=== PATIENT | female | born 1960 | race Caucasian/White ===

== ENCOUNTER 2018-05-04 12:54 | Emergency (ER) | payer OTHER ==
[~2018-05-04] VITALS: Ht 170.2 cm; Wt 158.8 kg
[~2018-05-04 12:54] MED LIST: ALBUTEROL2.5 MG/31 INH; PROMETHAZINE V473 ML PO; TESSALON PERLE100 MG PO; ZPAK PO
[2018-05-04] MEDS ORDERED: XANAX1 MG PO (13:03)
[2018-05-04] MEDS ORDERED: ESTRADIOL 1 MG T1 M1 PO (13:04)
[2018-05-04 13:13] LABS: ABSOLUTE EOSINOPHILS 0.1 thou/uL (0.0-0.7); ABSOLUTE LYMPHOCYTES 2.1 thou/uL (0.8-5.3); ABSOLUTE MONOCYTES 0.5 thou/uL (0.0-1.2); ABSOLUTE NEUTROPHILS 4.4 thou/uL (1.6-8.1); BASOPHILS 0.6 %; EOSINOPHILS 1.5 %; HEMATOCRIT 40.7 % (37.0-47.0); HEMOGLOBIN 13.6 gm/dL (12.0-15.0); LYMPHOCYTES 28.9 %; MCH 28.9 pg (26.0-34.0); MCHC 33.4 g/dL (28.0-37.0); MCV 86.3 fL (80.0-100.0); MONOCYTES 6.8 %; MPV 7.4 fl. (7.2-11.1); NUCLEATED RBCS 0 /100WBC; PLATELET COUNT* 247 thou/uL (150-400); POLYS 62.2 %; RBC 4.72 mil/uL (4.20-5.00); RDW-CV 14.4 % (10.5-14.5); WBC 7.1 thou/uL (4.0-11.0)
[2018-05-04 13:23] LABS: APTT 24.9 Seconds (25.0-31.3); INR 1.1; PROTIME 10.5 Seconds (9.20-11.50)
[2018-05-04 13:24] LABS: ANION GAP 8 mmol/L (7-16); BUN 9 mg/dL (7-18); CALCIUM 9.1 mg/dL (8.5-10.1); CHLORIDE 105 mmol/L (98-107); CO2 28 mmol/L (21-32); CREATININE 0.9 mg/dL (0.6-1.3); GLUCOSE 101 mg/dL (70-99); POTASSIUM 3.5 mmol/L (3.5-5.1); SODIUM 141 mmol/L (136-145)
[2018-05-04 13:40] LABS: ALBUMIN 3.3 g/dL (3.4-5.0); ALKALINE PHOSPHATASE 89 U/L (46-116); CK-MB MASS < 0.5 ng/mL (<0.5-3.6); LIPASE 78 U/L (73-393); MAGNESIUM 1.7 mg/dL (1.8-2.4); NT-PRO BRAIN NAT PEPTIDE 211 pg/mL (<300); SGOT 25 U/L (15-37); SGPT 30 U/L (30-65); TOTAL BILIRUBIN 0.2 mg/dL (<0.1-1.0); TOTAL PROTEIN 7.7 g/dL (6.4-8.2); TROPONIN-I LEVEL <0.06 ng/mL (<0.06)
[2018-05-04 13:57] VITALS: BP 142/74
--- NOTE | 2018-05-05 11:40 | EKG ---
[place] [address] ELECTROCARDIOGRAM REPORT Name: SHE GREEN Room: [facility]#: [id number] Admission: 05/04/18 Attend Phys: Discharge: 05/04/18 Date of : 60 Report #: [id number] THIS REPORT FOR: //name// [facility] ED Test Date: 2018-05-04 Test Time: 13:00:05 Pat Name: SHE GREEN Department: Room: Gender: F Voice Instructor: JANELLE : 1960 Requested By: Mukul Dugan Order Number: [id number] MD: Dane Asencio Measurements Intervals [place] Rate: 76 P: 13 [place]: 150 QRS: -7 QRSD: 155 T: -17 QT: 419 QTc: 472 Interpretive Statements Sinus rhythm Right bundle branch block Compared to ECG 10/26/2017 14:27:23 No significant changes Electronically Signed On 05-05-2018 11:40:16 CDT by Dane Asencio [email or web address] <ELECTRONICALLY SIGNED> By: Dane Asencio MD, [facility] 05/05/18 1140 1300 1300 Dane Asencio MD, FACC /EPI
== END 2018-05-04 13:58 | disposition home or self-care (01) ==
LOC: M.ERS 12:54
PROVIDERS: Family Medicine
DX: R07.89 Other chest pain (principal); F41.9 Anxiety disorder, unspecified; F32.9 Major depressive disorder, single episode, unspecified; M79.7 Fibromyalgia; E66.01 Morbid (severe) obesity due to excess calories; Z68.43 Body mass index [BMI] 50.0-59.9, adult; Z88.8 Allergy status to other drugs, medicaments and biological substances

== ENCOUNTER 2019-01-07 14:48 | Emergency (ER) | payer OTHER ==
[~2019-01-07] VITALS: Ht 170.2 cm; Wt 108.9 kg
[~2019-01-07 14:48] MED LIST changes: +ESTRADIOL 1 MG T1 M1 PO; +XANAX1 MG PO
[2019-01-07] MEDS ORDERED: PROZAC20 MG (15:30)
[2019-01-07] MEDS ORDERED: KLOR-CON 1010 MEQ PO (15:30)
[2019-01-07] MEDS ORDERED: NORCO 5-325 TA1 EACH PO (15:31)
[2019-01-07] MEDS ORDERED: PRILOSEC 20 MG20 MG PO (15:31)
[2019-01-07] MEDS ORDERED: FLEXERIL PO (17:08)
[2019-01-07 17:30] VITALS: BP 157/85
== END 2019-01-07 17:34 | disposition home or self-care (01) ==
LOC: M.ERS 14:48
DX: S39.012A Strain of muscle, fascia and tendon of lower back, initial encounter (principal); S80.12XA Contusion of left lower leg, initial encounter; S30.0XXA Contusion of lower back and pelvis, initial encounter; F32.9 Major depressive disorder, single episode, unspecified; F41.9 Anxiety disorder, unspecified; E66.01 Morbid (severe) obesity due to excess calories; Z68.37 Body mass index [BMI] 37.0-37.9, adult; M54.9 Dorsalgia, unspecified; G89.29 Other chronic pain; M79.7 Fibromyalgia; Z88.8 Allergy status to other drugs, medicaments and biological substances; W00.0XXA Fall on same level due to ice and snow, initial encounter; Y93.89 Activity, other specified; Y92.89 Other specified places as the place of occurrence of the external cause; Y99.8 Other external cause status

== ENCOUNTER 2019-05-12 16:07 | Emergency (ER) | payer OTHER ==
[~2019-05-12] VITALS: Ht 170.2 cm; Wt 97.5 kg
[~2019-05-12 16:07] MED LIST changes: +FLEXERIL PO; +KLOR-CON 1010 MEQ PO; +NORCO 5-325 TA1 EACH PO; +PRILOSEC 20 MG20 MG PO; +PROZAC20 MG
[2019-05-12 16:37] LABS: ABSOLUTE EOSINOPHILS 0.1 thou/uL (0.0-0.7); ABSOLUTE LYMPHOCYTES 1.9 thou/uL (0.8-5.3); ABSOLUTE MONOCYTES 0.3 thou/uL (0.0-1.2); ABSOLUTE NEUTROPHILS 3.2 thou/uL (1.6-8.1); BASOPHILS 0.8 %; EOSINOPHILS 1.5 %; HEMOGLOBIN 13.9 gm/dL (12.0-15.0); LYMPHOCYTES 33.9 %; MCHC 33.8 g/dL (28.0-37.0); MCV 85.6 fL (80.0-100.0); MONOCYTES 5.5 %; MPV 7.9 fl. (7.2-11.1); NUCLEATED RBCS 0 /100WBC; PLATELET COUNT* 183 thou/uL (150-400); POLYS 58.3 %; RBC 4.79 mil/uL (4.20-5.00); RDW-CV 14.4 % (10.5-14.5); WBC 5.5 thou/uL (4.0-11.0)
[2019-05-12 16:43] LABS: ANION GAP 12 mmol/L (7-16); BUN 17 mg/dL (7-18); CALCIUM 9.3 mg/dL (8.5-10.1); CHLORIDE 102 mmol/L (98-107); CO2 24 mmol/L (21-32); CREATININE 0.7 mg/dL (0.6-1.3); GLUCOSE 97 mg/dL (70-99); POTASSIUM 3.1 mmol/L (3.5-5.1); SODIUM 138 mmol/L (136-145)
[2019-05-12 16:46] LABS: APTT 26.6 Seconds (25.0-31.3); PROTIME 10.7 Seconds (9.20-11.50)
[2019-05-12 16:55] LABS: ALBUMIN 3.2 g/dL (3.4-5.0); ALKALINE PHOSPHATASE 77 U/L (46-116); CK-MB MASS < 0.5 ng/mL (<0.5-3.6); LIPASE 133 U/L (73-393); MAGNESIUM 1.6 mg/dL (1.8-2.4); NT-PRO BRAIN NAT PEPTIDE 230 pg/mL (<300); SGOT 12 U/L (15-37); SGPT 13 U/L (30-65); TOTAL BILIRUBIN 0.2 mg/dL (<0.1-1.0); TOTAL PROTEIN 7.1 g/dL (6.4-8.2); TROPONIN-I LEVEL <0.06 ng/mL (<0.06)
[2019-05-12] MEDS ORDERED: LEVAQUIN 750 M750 MG PO (18:01)
[2019-05-12 18:11] VITALS: BP 122/68
--- NOTE | 2019-05-13 15:52 | EKG ---
[place] [address] ELECTROCARDIOGRAM REPORT Name: SHE GREEN Room: [facility]#: [id number] Admission: 05/12/19 Attend Phys: Discharge: 05/12/19 Date of : 60 Report #: [id number] THIS REPORT FOR: //name// [place] ED Test Date: 2019-05-12 Test Time: 16:13:22 Pat Name: SHE GREEN Department: Room: Gender: F Home Therapy Teacher: : 1960 Requested By: Errol Valdez Order Number: [id number] MD: Dane Asencio Measurements Intervals [place] Rate: 58 P: 21 [place]: 147 QRS: -15 QRSD: 154 T: -22 QT: 448 QTc: 441 Interpretive Statements Sinus rhythm Right bundle branch block Compared to ECG 05/04/2018 13:00:05 No significant changes Electronically Signed On 05-13-2019 15:52:21 CDT by Dane Asencio [email or web address] <ELECTRONICALLY SIGNED> By: Dane Asencio MD, [facility] 05/13/19 1552 D: [id number] 12 Dane Asencio MD, FACC /EPI
== END 2019-05-12 18:11 | disposition home or self-care (01) ==
LOC: M.ERS 16:07
PROVIDERS: Emergency Medicine
DX: J98.11 Atelectasis (principal); J40 Bronchitis, not specified as acute or chronic; M79.7 Fibromyalgia; F41.9 Anxiety disorder, unspecified; M54.9 Dorsalgia, unspecified; G89.29 Other chronic pain; F32.9 Major depressive disorder, single episode, unspecified; H81.09 Meniere's disease, unspecified ear; Z88.8 Allergy status to other drugs, medicaments and biological substances; Z88.4 Allergy status to anesthetic agent